=== PATIENT | female | born 1950 | race Caucasian/White ===

== ENCOUNTER 2016-09-29 13:57 | Emergency (ER) | payer OTHER ==
[~2016-09-29] VITALS: Wt 91.0 kg
[~2016-09-29 13:57] MED LIST: BUSP30TA PO; CLOP75TA19 PO; DIAZ5TAB4 PO; LEVO88TA PO; LISI10TA2 PO; LORA-408 PO; METF-480 PO; METO25TA7 PO; MIRT45TA PO; NAPR-260 PO; PARO30TA68 PO; SIMV40TA2 PO; SITA25TA3; [UNRECOGNIZED DRUG - REMARK]
[2016-09-29] MEDS ORDERED: PROMETHAZINE/CODEINE 5ML CUP PO ONE (15:00)
[2016-09-29] MEDS ORDERED: ACET1TAB40 PO (15:12)
[2016-09-29] MEDS ORDERED: AZIT250T94 PO (15:12)
--- NOTE | 2016-09-29 15:16 | ERD ---
ER Documentation Chief Complaint Date/Time DATE: 09/29/16 TIME: 15:14 Chief Complaint COUGH,ST X 2 DAYS HPI This 66-year-old female presents with productive cough and sore throat for last 2 days. There is no measured fevers. She denies vomiting, abdominal pain, diarrhea. She has some mild anterior pleuritic chest pain. She has several positive URI sick contacts in the household ROS All systems reviewed and are negative except as per history of present illness. Medications Home Meds Active Scripts Acetaminophen with Codeine (Acetaminophen-Cod #3 Tablet) 1 Each Tablet, 1 TAB PO Q6H Y for PAIN, #10 TAB Prov:CLAIRE SAUCEDO MD 09/29/16 Azithromycin* (Zithromax*) 250 Mg Tablet, 250 MG PO .ZPACK DIRECTED, #6 TAB TAKE 500 MG (2 TABS) THE FIRST DAY THEN 250 MG (1 TAB) DAYS 2-5 Prov:CLAIRE SAUCEDO MD 09/29/16 Diazepam* (Diazepam*) 5 Mg Tablet, 5 MG PO QHS Y for MUSCLE SPASMS, #10 TAB Prov:KAMI GRAHAM NP 07/06/15 Naproxen* (Naprosyn*) 500 Mg Tablet, 500 MG PO BID Y for PAIN AND/OR INFLAMMATION, #30 TAB Prov:KAMI GRAHAM NP 07/06/15 Reported Medications [Same Meds Per - Maria Elena Marques] No Conflict Check 05/10/12 Lorazepam (Ativan) 1 Mg Tablet, 1 MG PO TID 07/09/11 Sitagliptin* (Januvia*) 25 Mg Tablet 05/30/11 Paroxetine Hcl* (Paroxetine*) 30 Mg Tablet, 30 MG PO HS 12/18/10 Buspirone Hcl (Buspirone Hcl) 30 Mg Tablet, PO BID, 0 Refills 05/06/09 Mirtazapine* (Remeron*) 45 Mg Tablet, PO HS, 0 Refills 05/06/09 Metformin* (Glucophage*) 850 Mg Tablet, PO TID, 0 Refills 05/06/09 Lisinopril* (Lisinopril*) 10 Mg Tablet, PO DAILY, 0 Refills 05/06/09 Simvastatin* (Zocor*) 40 Mg Tablet, PO DAILY, 0 Refills 05/06/09 Levothyroxine Sodium* (Synthroid*) 88 Mcg Tablet, PO DAILY, 0 Refills 05/06/09 Metoprolol Succinate* (Toprol XL*) 25 Mg Tab.sr.24h, PO DAILY, 0 Refills 05/06/09 Clopidogrel Bisulfate (Plavix) 75 Mg Tablet, PO DAILY, 0 Refills 05/06/09 Allergies Allergies: Coded Allergies: iodine (Verified Allergy, Mild, RASH, 07/05/15) PMhx/Soc History of Surgery: Yes (cs x 1) Anesthesia Reaction: No Hx Neurological Disorder: No Hx Respiratory Disorders: No Hx Cardiac Disorders: Yes (htn, hyperlipids) Hx Psychiatric Problems: Yes (panic attacks) Hx Miscellaneous Medical Probl: Yes (DM) Hx Alcohol Use: No Hx Substance Use: No Hx Tobacco Use: No Smoking Status: Never smoker Physical Exam Vitals Vital Signs Date Time Temp Pulse Resp B/P Pulse Ox O2 Delivery O2 Flow Rate FiO2 09/29/16 14:01 98.1 77 18 156/80 99 Physical Exam Const: [] Alert, not ill-appearing per Head: Atraumatic Eyes: Normal Conjunctiva ENT: Normal External Ears, Nose and Mouth. Oropharynx normal. Neck: Full range of motion..~ No meningismus. Resp: Clear to auscultation bilaterally Cardio: Regular rate and rhythm, no murmurs Abd: Soft, non tender, non distended. Normal bowel sounds Skin: No petechiae or rashes Back: No midline or flank tenderness Ext: No cyanosis, or edema Neur: Awake and alert Psych: Normal Mood and Affect Results 24 hrs Current Medications Medications (Trade) Dose Ordered Sig/Nicki Route PRN Reason Start Time Stop Time Status Last Admin Dose Admin Promethazine HCl/ Codeine (Phenergan/ Codeine) 10 ml ONCE ONCE PO 09/29/16 15:00 09/29/16 15:01 DC Procedures/MDM Patient presents with URI symptoms for last 3 days and productive cough. There is no evidence of respiratory distress or hypoxemia. EKG: Rate/Rhythm: [Normal Sinus Rhythm] rate equals 69 QRS, ST, T-waves: [No changes consistent w/ acute ischemia] Impression: [No evidence of ischemia or arrhythmia]. Impression have no acute findings on EKG Patient will be treated with Zithromax, Tylenol with 3 instructions to continue ibuprofen. She is given promethazine with codeine 2 teaspoons here in the ED. The patient was stable with no new complaints during the ER course. Clinically, there is no current evidence to suggest meningitis, sepsis, acute abdomen, pneumonia, acute coronary syndrome, pulmonary embolism, or any other emergent condition appearing to require further evaluation or hospitalization. The patient should certainly return for any new or worsening symptoms per the aftercare instructions. They should otherwise follow-up with her primary care doctor for reevaluation this week. Departure Diagnosis: Primary Impression: Upper respiratory infection URI type: unspecified URI Qualified Code: J06.9 - Upper respiratory tract infection, unspecified type Condition: Stable Patient Instructions: Acute Bronchitis Additional Instructions: Recheck for new or worsening symptoms or primary care doctor. Okay to continue ibuprofen or Naprosyn at home. Drink plenty of fluids. CLAIRE SAUCEDO MD Sep 29, 2016 15:16
[2016-09-29 15:32] VITALS: BP 145/76; PULSE 67; RESP 18
== END 2016-09-29 15:33 | disposition home or self-care (01) ==
LOC: FTE 13:57
DX: J06.9 Acute upper respiratory infection, unspecified (principal); I10 Essential (primary) hypertension; E11.9 Type 2 diabetes mellitus without complications; Z79.01 Long term (current) use of anticoagulants; Z79.84 Long term (current) use of oral hypoglycemic drugs
CPT/HCPCS: 93005; Z7502; Z7610